=== PATIENT | female | born 1970 | race African-American/Black ===

== ENCOUNTER → 2019-06-12 08:32 | Outpatient (CLI) | payer OTHER, SELFPAY ==
--- NOTE | 2019-06-12 08:36 | DI.MG.S_ITS ---
BILATERAL DIGITAL SCREENING MAMMOGRAM 3D/2D WITH CAD: 06/12/2019 CLINICAL: Routine screening. Comparison is made to exams dated: 02/23/2018 mammogram and 02/16/2017 mammogram - [facility]. The tissue of both breasts is heterogeneously dense. This may lower the sensitivity of mammography. Current study was also evaluated with a Computer Aided Detection (CAD) system. No significant masses, calcifications, or other findings are seen in either breast. There has been no significant interval change. IMPRESSION: NEGATIVE There is no mammographic evidence of malignancy. A 1 year screening mammogram is recommended. This exam was interpreted at Station ID: [id number]. NOTE: For mammograms, a report in lay terms will be sent to the patient. Approximately 15% of breast malignancies will not be visualized mammographically. In the management of a palpable breast mass, a negative mammogram must not discourage biopsy of a clinically suspicious lesion. Electronically Signed By: Thea graff/nila:06/12/2019 09:27:31 copy to: OLIVIA HYLTON letter sent: Normal Exam ACR BI-RADS Category 1: Negative 3341F
== END ==
PROVIDERS: PCP Student in an Organized Health Care Education/Training Program
DX: Z12.31 Encounter for screening mammogram for malignant neoplasm of breast (principal)
CPT/HCPCS: 77063; 77067

== ENCOUNTER → 2019-06-22 12:48 | Outpatient (CLI) | payer OTHER, SELFPAY ==
[2019-06-22 13:13] LABS: Hematocrit 38.2 % (36-46); Hemoglobin 12.9 g/dL (12.0-16.0); Mean Corpuscular HGB Conc 33.8 % (30-36); Mean Corpuscular Hemoglobin 30.7 PG (26-34); Mean Corpuscular Volume 90.8 fL (80-100); Platelet Count 214 X10^3/uL (150-400); Red Blood Cell Count 4.21 X10^6/uL (4.0-5.2); Red Cell Distribution Width 13.4 % (11.6-14.8); White Blood Cell Count 3.3 X10^3/uL (4.5-11.0)
[2019-06-22 13:14] LABS: Reticulocyte Count, Percent 0.8 % (1.06-2.63)
[2019-06-22 14:10] LABS: HEMOLYSIS < 15 (0-50); Iron 77 ug/dL (37-170)
[2019-06-22 14:13] LABS: Cholesterol 182 mg/dL (140-199); HDL Cholesterol 72 mg/dL (40-60); LDL Cholesterol Calculated 94 mg/dL (<100); Triglycerides 80 mg/dL (35-150)
[2019-06-22 14:22] LABS: Percent Iron Saturation 26 % (15-50); Total Iron Binding Capacity 301 ug/dL (265-497); Transferrin 239 mg/dL (206-381)
[2019-06-22 14:33] LABS: Vitamin D 25 Hydroxy (D3) 27.2 ng/mL (30.0-100.0)
[2019-06-22 15:45] LABS: TSH w/ Reflex to FT4 2.08 uIU/mL (0.47-4.68)
[2019-06-22 16:14] LABS: Ferritin 10.4 ng/mL (6.27-137)
[2019-06-22 17:34] LABS: Vitamin B12 651 pg/mL (239-931)
== END ==
PROVIDERS: PCP Student in an Organized Health Care Education/Training Program; Referring Provider Student in an Organized Health Care Education/Training Program; Visit Provider Student in an Organized Health Care Education/Training Program
DX: Z13.220 Encounter for screening for lipoid disorders (principal); D25.9 Leiomyoma of uterus, unspecified; D64.9 Anemia, unspecified; F32.9 Major depressive disorder, single episode, unspecified; R53.83 Other fatigue; Z78.0 Asymptomatic menopausal state; Z79.899 Other long term (current) drug therapy; Z91.89 Other specified personal risk factors, not elsewhere classified
CPT/HCPCS: 36415; 80061; 82306; 82607; 82728; 83540; 83550; 84443; 85027; 85045

== ENCOUNTER → 2020-05-23 09:26 | Outpatient (CLI) | payer OTHER, SELFPAY ==
[2020-05-23 11:43] LABS: COVID19 -Nasal RAPID Negative (Negative)
== END ==
PROVIDERS: PCP Student in an Organized Health Care Education/Training Program; Visit Provider Physician Assistant
DX: Z20.822 Contact with and (suspected) exposure to COVID-19 (principal)
CPT/HCPCS: 87635

== ENCOUNTER 2020-05-25 08:52 | Day surgery (SDC) | payer OTHER, SELFPAY ==
[2020-05-25] VITALS (7 sets, daily range): BP systolic 95–105; BP diastolic 55–72; PULSE 63–76; RESP 12–16; TEMP 36–36.6; O2SAT 100; BMI 22.1
[2020-05-25] MEDS: LACTATED RINGERS 1,000 ML 200 ML IV (09:35)
--- NOTE | 2020-05-25 10:17 | PM.HP.1 ---
History of Present Illness History of Present Illness Date Patient Seen: 05/25/20 Time Patient Seen: 10:18 Chief complaint: SCREENING COLONOSCOPY Narrative: The patient presents for colorectal sreening. They have never had any previous examination for such. No personal or family history of colon cancer. On further history denies any recent gastrointestinal symptoms. No nausea, vomiting, abdominal pain, loss of appetite, unexplained weight loss, change in bowel habits, diarrhea, constipation, melena, hematochezia, or bright red blood per rectum. Patient History Medical History Anemia (~1989) Chicken pox (~1979) Depression Fibroids Ovarian cyst (~1999) Surgical History Anesthesia History of breast implant removal (~2000) Hx of breast implants, bilateral (~10/1999) Family & Social History Family History Father Prostate cancer Congestive heart failure Hyperlipidemia Mother Diabetes mellitus Hypertension Hyperlipidemia Social History: household members spouse Tobacco & Substance use: Smoking Status Never smoker alcohol intake never Substance Use Type does not use Meds Home Medications and Allergies Home Medications Medication Instructions Recorded Confirmed Type CMP Estradiol Vaginal Pearls 25mcg 1 each VAGINAL BEDTIME #40 each 01/17/20 05/25/20 Rx estradiol 1 mg tablet 1.5 mg PO DAILY #135 tab 03/24/20 05/25/20 Rx tolterodine 4 mg capsule,extended 4 mg PO DAILY #90 cap 04/01/20 05/25/20 Rx release 24 hr progesterone micronized 100 mg 100 mg PO QAM #90 cap 04/27/20 05/25/20 Rx capsule Allergies Allergy/AdvReac Type Severity Reaction Status Date / Time No Known Drug Allergies Allergy Verified 05/25/20 09:12 Review of Systems Review of Systems Narrative: A 10 point review of systems is negative except as noted in the HPI Exam Vital Signs (past 8 hours): - 05/25/20 09:24 Temperature 97.1 F L Pulse Rate 63 Respiratory Rate 16 Blood Pressure 100/72 Pulse Oximetry 100 Oxygen Delivery Method Room Air Oxygen Flow Rate 0 Narrative Exam Narrative: General-no acute distress, well nourished adult female HEENT-moist mucous membranes, no scleral icterus Neck-supple, no lymphadenopathy Chest- non labored respirations, clear to auscultation bilaterally Cardiac-regular rate no peripheral edema Abdomen-soft, nontender, non distended Extremities-warm, well perfused Neurological-alert and oriented, no focal deficits Assessment & Plan Assessment & Plan narrative: The patient requires colorectal screening and colonoscopy is recommended. Technical details were discussed. Risks, benefits, alternatives explained. Risks including but not limited to myocardial infarction, aspiration, bleeding, pain, missed lesion, incomplete examination, need for further radiographic studies, colonic perforation, and need for major abdominal surgery were discussed. All questions were answered to their satisfaction, and they are in agreement with this plan.
[2020-05-25] MEDS: MIDAZOLAM 5 MG/5 ML VIAL IV (10:30)
[2020-05-25] MEDS: fentaNYL 250 MCG/5 ML INJ IV (10:48)
--- NOTE | 2020-05-25 10:49 | PM.OP.ENDO ---
Operative Date/Time/Diagnoses Date of procedure: 05/25/20 Time of procedure: 10:49 Pre-op diagnosis: screening colonoscopy Post-op diagnosis: same Procedure & Clinicians Study performed: screening colonoscopy Same procedure as scheduled: Yes Indications: 50F no prior colonoscopy here for routine screening colonoscopy Surgeon: Kit Mc Procedure Notes Procedure in detail: Medications: Conscious sedation using 5mg IV midazolam and 250mcg IV of fentanyl The history and physical was performed/updated and the patient is ASA class is 1. The procedure was discussed in detail with the patient. Potential risks complications including infection, bleeding, missed diagnosis, perforation, need for surgery, and were explained. Their questions were answered and informed consent was obtained. Patient was brought to the procedure room and placed standard monitoring equipment. The patient's vital signs were monitored continuously throughout the entire procedure. Prior to starting time-out was performed. The patient was placed in the left lateral recumbent position. Procedural sedation was administered. Examination began with a thorough inspection of the perianal area there was no evidence of fissures, fistulae, external hemorrhoids or cutaneous malignancy. The colonoscopy scope was then placed into the anal canal and was advanced to the cecum, which was identified by the ileocecal valve, the appendiceal orifice and the confluence of the taenia. The scope was then slowly withdrawn examining colon thoroughly in all directions, irrigating it of any residual stool. No masses or polyps The patient tolerated the procedure well. They will be discharged once criteria are met. The prep was of good/excellent quality. The withdrawl time was 8 minutes. The sedation time was 23 minutes. Specimen(s): none sent Complications: none Impression: Normal colonoscopy Post-procedure Recommendations: Colonscopy in 10 years Disposition: same day surgery
== END 2020-05-25 11:37 | disposition home or self-care (01) ==
PROVIDERS: PCP Student in an Organized Health Care Education/Training Program; Referring Provider Student in an Organized Health Care Education/Training Program; Visit Provider Surgery
PROC: 0DJD8ZZ Inspection of Lower Intestinal Tract, Via Natural or Artificial Opening Endoscopic (ICD-10-PCS; CPT 45378; principal; 2020-05-25 10:00)
DX: Z12.11 Encounter for screening for malignant neoplasm of colon (principal)
CPT/HCPCS: 45378; 99152; J2250; J3010

== ENCOUNTER → 2020-06-13 10:20 | Outpatient (CLI) | payer OTHER, SELFPAY ==
--- NOTE | 2020-06-13 10:22 | DI.MG.S_ITS ---
BILATERAL DIGITAL SCREENING MAMMOGRAM 3D/2D WITH CAD: 06/13/2020 CLINICAL: Routine screening. Comparison is made to exams dated: 06/12/2019 mammogram - [facility], 02/23/2018 mammogram, and 02/16/2017 mammogram - [facility]. The tissue of both breasts is heterogeneously dense. This may lower the sensitivity of mammography. Current study was also evaluated with a Computer Aided Detection (CAD) system. No significant masses, calcifications, or other findings are seen in either breast. There has been no significant interval change. IMPRESSION: NEGATIVE There is no mammographic evidence of malignancy. A 1 year screening mammogram is recommended. This exam was interpreted at Station ID: [id number]. NOTE: For mammograms, a report in lay terms will be sent to the patient. Approximately 15% of breast malignancies will not be visualized mammographically. In the management of a palpable breast mass, a negative mammogram must not discourage biopsy of a clinically suspicious lesion. Electronically Signed By: Graeme saenz/nila:06/15/2020 07:36:09 copy to: OLIVIA HYLTON letter sent: Normal Exam ACR BI-RADS Category 1: Negative 3341F
== END ==
PROVIDERS: PCP Student in an Organized Health Care Education/Training Program; Referring Provider Obstetrics & Gynecology; Visit Provider Obstetrics & Gynecology
DX: Z12.31 Encounter for screening mammogram for malignant neoplasm of breast (principal)
CPT/HCPCS: 77063; 77067

== ENCOUNTER → 2021-06-12 08:15 | Outpatient (CLI) | payer OTHER, SELFPAY ==
--- NOTE | 2021-06-12 08:38 | DI.MG.S_ITS ---
Procedure: MM screening mammo BI BILATERAL DIGITAL SCREENING MAMMOGRAM 3D/2D WITH CAD: 06/12/2021 CLINICAL: Routine screening. Comparison is made to exams dated: 06/13/2020 mammogram, 06/12/2019 mammogram - [facility], and 02/23/2018 mammogram - [facility]. The tissue of both breasts is heterogeneously dense. This may lower the sensitivity of mammography. Current study was also evaluated with a Computer Aided Detection (CAD) system. No significant masses, calcifications, or other findings are seen in either breast. There has been no significant interval change. IMPRESSION: NEGATIVE There is no mammographic evidence of malignancy. A 1 year screening mammogram is recommended. This exam was interpreted at Station ID: [id number]. NOTE: For mammograms, a report in lay terms will be sent to the patient. Approximately 15% of breast malignancies will not be visualized mammographically. In the management of a palpable breast mass, a negative mammogram must not discourage biopsy of a clinically suspicious lesion. Electronically Signed By: Feng nelson/nila:06/14/2021 08:47:17 copy to: OLIVIA HYLTON letter sent: Normal Exam ACR BI-RADS Category 1: Negative 3341F
== END ==
PROVIDERS: PCP Student in an Organized Health Care Education/Training Program; Referring Provider Obstetrics & Gynecology; Visit Provider Obstetrics & Gynecology
DX: Z12.31 Encounter for screening mammogram for malignant neoplasm of breast (principal)
CPT/HCPCS: 77063; 77067

== ENCOUNTER → 2021-11-23 08:12 | Outpatient (CLI) | payer OTHER, SELFPAY ==
[2021-11-23 10:09] LABS: Free T3, Triiodothyronine Free 3.15 pg/mL (2.77-5.27); Free T4, Direct Thyroxine 0.98 ng/dL (0.78-2.19)
[2021-11-23 10:23] LABS: Thyroid Stimulating Hormone 4.73 uIU/mL (0.47-4.68)
[2021-11-26 11:53] LABS: Triiodothyronine T3 Reverse 13.9 ng/dL (9.2-24.1)
== END ==
PROVIDERS: PCP Student in an Organized Health Care Education/Training Program; Referring Provider Obstetrics & Gynecology; Visit Provider Obstetrics & Gynecology
DX: R68.82 Decreased libido (principal)
CPT/HCPCS: 36415; 84439; 84443; 84481; 84482

== ENCOUNTER → 2022-02-12 07:45 | Outpatient (CLI) | payer OTHER, SELFPAY ==
[2022-02-12 10:08] LABS: Free T4, Direct Thyroxine 1.35 ng/dL (0.78-2.19)
[2022-02-12 10:22] LABS: Thyroid Stimulating Hormone 2.34 uIU/mL (0.47-4.68)
== END ==
PROVIDERS: PCP Student in an Organized Health Care Education/Training Program; Referring Provider Obstetrics & Gynecology; Visit Provider Obstetrics & Gynecology
DX: E03.9 Hypothyroidism, unspecified (principal)
CPT/HCPCS: 36415; 84439; 84443